=== PATIENT | male | born 1995 | race Caucasian/White ===

== ENCOUNTER 2022-02-19 14:28 | Emergency (ER) | payer OTHER ==
[2022-02-19 15:26] LABS: HIV (1/2) Antibody/Antigen Non-Reactive (NonReactive); HIV 1/2 INDEX 0.09 S/CO (<1.00)
[2022-02-19 23:15] LABS: Hep C IgG Ab Non-Reactive (NonReactive); Hep C Index 0.13 S/CO (0-0.79)
[2022-02-20 00:23] LABS: HBSAB Concentration 8.09 mIU/mL
== END 2022-02-19 16:18 | disposition home or self-care (01) ==
LOC: CSHERS 14:28
DX: Z77.21 Contact with and (suspected) exposure to potentially hazardous body fluids (principal)
CPT/HCPCS: 36415; 99283